=== PATIENT | male | born 1960 | race Two or more races ===

== ENCOUNTER 2024-01-07 20:37 | Emergency (ER) | payer OTHER ==
[~2024-01-07] VITALS: Ht 185.4 cm; Wt 95.3 kg
[2024-01-07] MEDS ORDERED: FAMOTIDINE/PF 20 MG in 0.9 % SODIUM CHLORIDE 8 ML IV PUSH STA (21:34)
[2024-01-07] MEDS ORDERED: ONDANSETRON HCL 2 MG/ML VIAL IV ONE (21:45)
[2024-01-07] MEDS ORDERED: ENALAPRILAT DIHYDRATE 1.25 MG/ML VIAL IV ONE (21:45)
[2024-01-07] MEDS ORDERED: 0.9 % SODIUM CHLORIDE 1,000 ML IV SCH (21:45)
[2024-01-07 22:08] LABS: HEMATOCRIT 46.3 % (39.0-48.0); HEMOGLOBIN 16.3 g/dL (13-16.00); MEAN CELL VOLUME 92.8 fL (80.0-100.00); MEAN CORPUSCULAR HEMOGLOBIN 32.8 pg (27.00-32.0); MEAN CORPUSCULAR HGB CONC 35.3 g/dl (32.0-36.0); PLATELET COUNT 217 K/uL (150-450); RED BLOOD COUNT 4.99 M/uL (4.00-6.00); RED CELL DISTRIBUTION WIDTH 13.9 % (11.5-14.5)
[2024-01-07 22:31] LABS: ALBUMIN 3.9 gm/dL (3.4-5.0); BILIRUBIN TOTAL 0.76 mg/dL (0.3-1.2); CALCIUM 9.6 mg/dL (8.5-10.1); CREATININE SERUM 1.02 mg/dL (0.70-1.30); GFR 74.25; GLOBULINA 3.6 G/DL (2.4-3.5); POTASSIUM 4.45 mEq/L (3.5-5.1); TOTAL PROTEIN 7.5 gm/dL (6.4-8.2)
[2024-01-07 23:40] LABS: URINE WBC 1.9 uL (0.0-23.2)
[2024-01-07 23:45] LABS: URINE BACTERIA 3.7 uL (0.0-1933); URINE RBC 0.1 uL (0.0-20.8)
[2024-01-07] MEDS ORDERED: INSULIN REGULAR, HUMAN 1,000 UNIT/10 ML UNITS SUBCUTANEO ONE (23:45)
[2024-01-07 23:50] LABS: URINE APPEARANCE CLEAR; URINE BILIRRUBIN NEGATIVE (NEGATIVE); URINE BLOOD NEGATIVE; URINE COLOR YELLOW; URINE GLUCOSE >=1000 MG/DL (NEGATIVE)
[2024-01-07 23:51] LABS: PH,URINE 5.5 (5.0-8.0); URINE LEUKOCYTE NEGATIVE; URINE NITRATE NEGATIVE; URINE PROTEIN NEGATIVE (NEGATIVE); URINE UROBILINOGEN 0.2 E.U./dl
[2024-01-08] MEDS ORDERED: PEPCID40 MG PO (03:52)
[2024-01-08] MEDS ORDERED: METFORMIN HCL500 M3 PO (03:52)
== END 2024-01-08 03:58 ==
LOC: ER 20:37
PROVIDERS: General Practice
DX: E86.0 Dehydration (principal); R11.2 Nausea with vomiting, unspecified